=== PATIENT | female | born 1990 | race Two or more races ===

== ENCOUNTER 2025-02-14 23:12 | Emergency (ER) | payer MEDICAID, SELFPAY ==
[2025-02-14 23:13] VITALS: BMI 24.1
[2025-02-14 23:28] VITALS: BP 125/85; PULSE 63; RESP 20; TEMP 36.8; O2SAT 99
--- NOTE | 2025-02-14 23:35 | EDNOTE_ITS ---
ED Ear RME/HPI General Chief complaint: Ear Stated complaint: L EAR PAIN Time Seen by Provider: 02/14/25 23:16 Arrival date/time: 02/14/25 23:12 This is a case of 34-year-old female who came in in the emergency room due to left ear pain for 2 days patient states that for 2 years she has on and off ear pain and was treated with antibiotic last antibiotic treatment is 8 months ago denies any tinnitus denies any dizziness or denies any hearing loss no other symptoms Limitations: no limitations Related Data Previous Rx's ?Medication ?Instructions ?Recorded amoxicillin 875 mg-potassium 1 tab PO BID 10 days #20 tabs 02/14/25 clavulanate 125 mg tablet ibuprofen 800 mg tablet 800 mg PO Q8H PRN pain #20 t abs 02/14/25 ofloxacin 0.3 % ear drops 10 drp otic (ear) QDAY 7 day s #10 02/14/25 mL Allergies Allergy/AdvReac Type Severity Reaction Status Date / Time No Known Allergies Allergy Verified 02/14/25 23:15 Review of Systems Review of Systems Systems Reviewed: All systems reviewed, normal except as documented Constitutional Constitutional: Reports system reviewed and no additional complaints, except as documented, Reports as per HPI, Denies chills, Denies fever(s) and Denies headache(s) ENT Ears, Nose, Mouth, and Throat: Reports system reviewed and no additional complaints, except as documented, Reports as per HPI, Denies abnormal hearing, Denies bleeding gums, Denies change in voice, Denies dental pain, Denies disequilibrium, Denies dizziness, Denies dry mouth, Denies dysphagia, Denies ear discharge, Reports otalgia, Denies epistaxis, Denies facial pain, Denies halitosis, Denies headache(s), Denies hearing loss, Denies hoarseness, Denies lip swelling, Denies mouth lesions, Denies mouth pain, Denies nasal congestion, Denies nasal discharge, Denies nasal obstruction, Denies nasal trauma, Denies neck mass, Denies neck pain, Denies nose pain, Denies odynophagia, Denies post nasal drip, Denies sinus pain, Denies sinus pressure, Denies sore throat, Denies throat swelling, Denies tinnitus, Denies tongue swelling and Denies vertigo Cardiovascular Cardiovascular: Reports system reviewed and no additional complaints, except as documented and Reports as per HPI Respiratory Respiratory: Reports system reviewed and no additional complaints, except as documented and Reports as per HPI Gastrointestinal Gastrointestinal: Reports system reviewed and no additional complaints, except as documented, Reports as per HPI, Denies dysphagia and Denies odynophagia Musculoskeletal Musculoskeletal: Denies neck pain Neurologic Neurologic: Reports system reviewed and no additional complaints, except as documented, Reports as per HPI, Denies abnormal hearing, Denies disequilibrium, Denies dizziness, Denies headache(s) and Denies vertigo Allergic/Immunologic Allergic/Immunologic: Denies lip swelling, Denies throat swelling and Denies tongue swelling Past Medical History Social History SMOKING STATUS: Never smoker ED Exam General Limitations: Present no limitations General appearance: Present alert and in no apparent distress Head Head exam: Present atraumatic, normocephalic and normal inspection Eye Eye exam: Present normal appearance, PERRL and EOMI ENT ENT exam: Present normal exam, normal oropharynx, mucous membranes moist and other (Noted bilateral ear canal noted red tender to touch no swelling mild yellowish discharge no mastoid tenderness tympanic membrane both red retracted bulging but not perforated) Neck Neck exam: Present normal inspection, full ROM and trachea midline Chest Chest inspection: Present normal inspection and symmetric chest wall rise Respiratory Respiratory exam: Present normal lung sounds bilaterally; Absent respiratory distress, wheezes, stridor, accessory muscle use or prolonged expiratory phase Cardiovascular Cardiovascular exam: Present regular rate, normal rhythm and normal heart sounds Abdominal Exam Abdominal exam: Present soft and normal bowel sounds Extremities Exam Extremities exam: Present normal inspection and full ROM Back Exam Back exam: Present normal inspection and full ROM Neurological Exam Neurological exam: Present alert, oriented X3, CN II-XII intact, normal gait and reflexes normal; Absent motor sensory deficit Psychiatric Psychiatric exam: Present normal affect and normal mood Skin Skin exam: Present warm, dry, intact and normal color Course Quality Measures none Vital Signs Vital signs: Vital Signs Temperature 98.2 F 02/14/25 23:28 Pulse Rate 63 02/14/25 23:28 Respiratory Rate 20 02/14/25 23:28 Blood Pressure 125/85 H 02/14/25 23:28 Pulse Oximetry (%) 99 02/14/25 23:28 Oxygen Delivery Method Room Air 02/14/25 23:28 Oxygen saturation 99% in room Ear MDM Narrative MDM Narrative:: This is a case of 34-year-old female who came in in the emergency room due to left ear pain for 2 days patient states that for 2 years she has on and off ear pain and was treated with antibiotic last antibiotic treatment is 8 months ago denies any tinnitus denies any dizziness or denies any hearing loss no other symptoms physical examination patient is awake alert oriented not in distress nontoxic looking lung sound is clear no crackles no rales no retraction no stridor HEENT exam except both ear canal red discharge no mastoid tenderness no swelling both tympanic membranes are retracted bulging and red not perforated at this point based on the physical examination and history patient will be treated as otitis media patient was given Augmentin and ofloxacin and was given Motrin for pain patient was advised to follow-up with PCP to be referred to ENT for recurrent ear infection Patient was discharged with comfortable condition walking with stable gait. P atient verbalized no further complains explained diagnosis and answered patient question. Patient is comfortable with the proposed management plan including the need to follow up with his/her primary care physician and any specialist if applicable Discussed patient for any urgent condition or worsening sx, He/She needed to go to emergency room immediately or call 911. Patient acknowledge the responsibility to follow up as instructed and to monitor her/his symptoms. For any persistence of the symptoms for more than 3-5 days return precaution advised. Discussed the result of the test and was given printed discharge instruction Patient data External records reviewed:: [facility] [place] previous records Clinical information provided by:: patient Social determinants that could affect healthcare access:: none Patient has the following chronic illnesses:: None How is presenting disease/condition affected by chronic disease/condition?: no chronic disease Evaluation data The following diagnostics were reviewed and interpreted by me:: other (specify) Lab and/or radiology exams considered but not ordered:: None Interpretation Summary: None Medications / Prescriptions Medications or Prescriptions considered but not ordered:: Given Medication administrations:: Given Consultations Consultation(s) initiated? (list below): No Diagnosis Ear Differential Diagnosis: otitis externa, otitis media and ruptured TM Most likely diagnosis given after review of the tests above:: Otitis media Admission Indicated Admission indicated?: not indicated Explain why admission is indicated or not indicated:: Not indicated Admission Request Was there a request for admission?: No Admission Attestation Admission request attestation: Not indicated Disposition Plan Disposition Plan: Discharge Discharge Attestation Discharge Attestation: The patient and all family members were given an opportunity to ask questions and understood the discharge instructions. Discharge instructions specifically effects, indications for sooner follow up or return to the emergency department, and the expected course of current diagnosis. Patient condition: Stable Discharge Plan Plan Patient Disposition: HOME (Self Care) Patient condition on transfer: Stable Prescriptions/Referrals Prescriptions/Med Rec: New amoxicillin-pot clavulanate 875-125 mg tablet 1 tab PO BID 10 Days Qty: 20 0RF ofloxacin 0.3 % drops 10 drp otic (ear) QDAY 7 Days Qty: 10 0RF ibuprofen 800 mg tablet 800 mg PO Q8H PRN (Reason: pain) Qty: 20 0RF Problem List Clinical Impression: Otitis media Patient/Caregiver Discharge Instructions Education Materials: ED Otitis Media Antibiotic ... Additional Instructions: Follow-up with your primary care physician in 2 days for reevaluation and to review be referred to ENT specialist for recurrent ear infection for any recurrence worsening symptoms or any emergent concern return to the emergency room immediately or call 911 take your medication as directed no Q-tips no cotton balls prevent water to enter both ears is advised Print Language: Tajik Stand Alone Forms: Gypsy Award Info., Patient Portal Info Letter PA/[employer] Supervising Physician MARI/MAGNOLIA Supervising Physician: dr medrano
== END 2025-02-15 00:05 | disposition home or self-care (01) ==
PROVIDERS: Emergency Provider Emergency Medicine; PCP Nurse Practitioner
DX: H66.92 Otitis media, unspecified, left ear (principal)
CPT/HCPCS: 99281